=== PATIENT | male | born 1945 | race Caucasian/White ===

== ENCOUNTER 2016-09-08 14:36 | Observation (INO) | payer OTHER, MEDICARE ==
[~2016-09-08] VITALS: Ht 172.7 cm; Wt 89.0 kg
[2016-09-08] VITALS (10 sets, daily range): BP systolic 114–166; BP diastolic 63–82; PULSE 54–88; RESP 16–20; TEMP 98.1–98.5; O2SAT 94–96
[~2016-09-08 14:36] MED LIST: AMLO5TAB22 PO; BIOTSPR PO; CALTTAB2 PO; CYCL-36 PO; DILT120C49 PO; DOXE25 PO; ESZO1TAB2 PO; HYDR12.56 PO; HYDR2TAB PO; LANTUSP SQ; LEVO50TA4 PO; MAOX420T PO; MELO7.5 PO; NOVOINJ SQ; OMEP20TA PO; PREV1.1G; TERB1%T TOP; ULTR50TA PO; VITA500S3 PO
--- NOTE | 2016-09-08 14:59 | PD ---
HPI Chief Complaint: chest pain Time Seen by Provider: 14:48 Travel History International Travel<30 days: No Contact w/Intl Traveler<30days: No Traveled to known affect area: No History of Present Illness HPI This is a 71-year-old male who was sent here by the [place] via EMS for evaluation of chest pain. The patient reports that 1 developed left-sided chest pain which lasted for 3-4 days and then resolved. His current pain started 4 days ago. He reports that he was watching TV when he developed left-sided chest pain which has been constant. The pain is worse with inspiration. The pain is a dull aching pain in the left side of his chest with no radiating pain. He was seen at the [place] and sent here for further evaluation. The patient denies any nausea, vomiting, diaphoresis, acute shortness of breath, abdominal pain, recent travel/surgery. He reports that he has a history of coronary artery disease, he had a stent placed several years ago in [place]. According to his records he had a nuclear stress test September 26, 2015 through the [place] which was reportedly normal. He has no other complaints. [facility] Past Medical History Arthritis: Yes (RA) Anxiety: Yes (30% SERVICE CONNECTED FOLLOWED BY MENTAL HEALTH IN [place]) Cardiac Catheterization: Yes Cerebrovascular Accident: Yes (TIA) Diabetes: Yes Dialysis: Yes (TYPE II) Endocrine: Yes (LOW TESTOSTERONE LEVEL) Hepatitis: Yes (HEP C) Kidney Stones: Yes (URIC ACID STONES) Musculoskeletal: Yes (CHRONIC BACK PAIN ) Respiratory: Yes ([facility]STOS EXPOSURE - [employer]) Renal Failure: Yes (ACUTE RENAL FAILURE 08/07 - 09/21/06) Thyroid Disease: Yes (STARTED AFTER BEING ON INTERFERON) Past Surgical History Abdominal Surgery: Yes (EXP LAP AND RE-EXP LAP DONE DURING 08/07 TO 09/21 ADMIT AT [facility], [place]) Cholecystectomy: Yes (WITH SEPSIS 08/07 TO 09/21) Social History Alcohol Use: No Tobacco Use: No Substance Use: No Allergies-Medications (Allergen,Severity, Reaction): Coded Allergies: Albumin Human (Verified Allergy, Severe, 09/08/16) Aldactone (Verified Allergy, Unknown, 09/08/16) Baclofen (Verified Allergy, Unknown, 09/08/16) Fluoxetine (Verified Allergy, Unknown, 09/08/16) Lisinopril (Verified Allergy, Unknown, 09/08/16) Prozac (Verified Allergy, Unknown, 09/08/16) Uncoded Allergies: HYPAQUE MEGLUMINE (Allergy, Unknown, 10/12/13) VARDENAFIL (Allergy, Unknown, 10/12/13) Reported Meds & Prescriptions Reported Meds & Active Scripts Active Reported Ultram (Tramadol HCl) 50 Mg Tab 50 Mg PO TID PRN Lamisil At (Terbinafine HCl) 1 % Cr 1 Applic TOP BID TO AFFECTED AREA ON SKIN FOR FUNGAL INFECTION Prevident Fluoride (Sodium Fluoride (Dental)) 1.1 % Gel 1 Applic BID APPLY SMALL AMT TO TEETH Mobic 7.5 Mg Tab (Meloxicam) 7.5 Mg Tab 7.5 Mg PO DAILY Maox (Magnesium Oxide) 420 Mg Tab 420 Mg PO BID Hydrochlorothiazide 12.5 Mg Tab 12.5 Mg PO DAILY Eszopiclone 1 Mg Tab 1 Mg PO HS Sinequan 25 Mg Cap (Doxepin Hcl) 25 Mg Cap 25 Mg PO HS MAY TAKE UP TO 3 CAPS TOGETHER WITH ESZOPICLONE FOR SLEEP Flexeril (Cyclobenzaprine HCl) 10 Mg Tab 10 Mg PO BID PRN Vitamin B-12 (Cyanocobalamin) 500 Mcg Tab 500 Mcg PO DAILY Caltrate 600/Vitamin D 400 (Calcium/Vitamin D) 1 Tab Tab 1 Tab PO DAILY Biotene Moisturizing Mout (Artificial Saliva) Mouth Spr 1 [place] PO DIRECTED SWIRL FOR 10 SECONDS THEN SPIT OUT Amlodipine Besylate 5 Mg Tab 5 Mg PO DAILY Hydromorphone Hcl (Hydromorphone HCl) 8 Mg Tab 8 Mg PO Q6H PRN Levothyroxine 50 mcg (Levothyroxine Sodium) 50 Mcg Tab 50 Mcg PO DAILY TAKE 30 MINUTES BEFORE BREAKFAST, SEPERATE FROM CALCIUM AND MAGNESIUM PRODUCTS BY 4HRS Omeprazole 20 Mg Tab 20 Mg PO BID Novolog Penfill (Insulin Aspart) Inj 6 Units SQ TIDAC Lantus (Insulin Glargine) 100 Units/Ml Inj 24 Units SQ DAILY Diltiazem Cd (Diltiazem HCl) 120 Mg Cap 120 Mg PO DAILY Review of Systems Except as stated in HPI: all other systems reviewed are Neg Physical Exam Narrative GENERAL: Well-developed well-nourished male in no acute distress SKIN: Warm and dry. HEAD: Atraumatic. Normocephalic. EYES: Pupils equal and round. No scleral icterus. No injection or drainage. ENT: No nasal bleeding or discharge. Mucous membranes pink and moist. NECK: Trachea midline. No JVD. CARDIOVASCULAR: Regular rate and rhythm. No murmur appreciated. RESPIRATORY: No accessory muscle use. Clear to auscultation. Breath sounds equal bilaterally. GASTROINTESTINAL: Abdomen soft, non-tender, nondistended. Hepatic and splenic margins not palpable. MUSCULOSKELETAL: No obvious deformities. No clubbing. No cyanosis. No edema. NEUROLOGICAL: Awake and alert. No obvious cranial nerve deficits. Motor grossly within normal limits. Normal speech. PSYCHIATRIC: Appropriate mood and affect; insight and judgment normal. Data Data Last Documented VS Vital Signs Date Time Temp Pulse Resp B/P Pulse Ox O2 Delivery O2 Flow Rate FiO2 09/08/16 15:19 88 16 129/65 94 Room Air 09/08/16 14:55 98.1 Orders Electrocardiogram (09/08/16 14:51) Basic Metabolic Panel (Bmp) (09/08/16 14:51) Ckmb (Isoenzyme) Profile (09/08/16 14:51) Complete Blood Count With Diff (09/08/16 14:51) D-Dimer (09/08/16 14:51) Magnesium (Mg) (09/08/16 14:51) Prothrombin Time / Inr (Pt) (09/08/16 14:51) Act Partial Throm Time (Ptt) (09/08/16 14:51) Troponin I (09/08/16 14:51) Chest, Single Ap (09/08/16 14:51) Ecg Monitoring (09/08/16 14:51) Bilateral Bp Monitoring (09/08/16 14:51) Iv Access Insert/Monitor (09/08/16 14:51) Oximetry (09/08/16 14:51) Oxygen Administration (09/08/16 14:51) Sodium Chloride 0.9% Flush (Ns Flush) (09/08/16 15:00) Nitroglycerin Sl (Nitrostat Sl) (09/08/16 15:00) CKMB (09/08/16 15:15) CKMB% (09/08/16 15:15) Ct Pulmonary Angiogram (09/08/16 16:08) Potassium Chloride (Kcl) (7/25/17 16:30) Iohexol 350 Inj (Omnipaque 350 Inj) (09/08/16 18:28) Labs Laboratory Tests Test 09/08/16 15:15 White Blood Count 10.2 TH/MM3 Red Blood Count 4.01 MIL/MM3 Hemoglobin 13.3 GM/DL Hematocrit 37.9 % Mean Corpuscular Volume 94.6 FL Mean Corpuscular Hemoglobin 33.1 PG Mean Corpuscular Hemoglobin 35.0 % Concent Red Cell Distribution Width 13.6 % Platelet Count 181 TH/MM3 Mean Platelet Volume 9.1 FL Neutrophils (%) (Auto) 65.1 % Lymphocytes (%) (Auto) 23.4 % Monocytes (%) (Auto) 6.4 % Eosinophils (%) (Auto) 4.1 % Basophils (%) (Auto) 1.0 % Neutrophils # (Auto) 6.6 TH/MM3 Lymphocytes # (Auto) 2.4 TH/MM3 Monocytes # (Auto) 0.7 TH/MM3 Eosinophils # (Auto) 0.4 TH/MM3 Basophils # (Auto) 0.1 TH/MM3 CBC Comment DIFF FINAL Differential Comment Prothrombin Time 10.4 SEC Prothromb Time International 0.9 RATIO Ratio Activated Partial 25.2 SEC Thromboplast Time D-Dimer Quantitative (PE/DVT) 0.72 MG/L FEU Sodium Level 138 MEQ/L Potassium Level 3.4 MEQ/L Chloride Level 104 MEQ/L Carbon Dioxide Level 25.1 MEQ/L Anion Gap 9 MEQ/L Blood Urea Nitrogen 20 MG/DL Creatinine 1.44 MG/DL Estimat Glomerular Filtration 48 ML/MIN Rate Random Glucose 239 MG/DL Calcium Level 9.3 MG/DL Magnesium Level 2.2 MG/DL Total Creatine Kinase 140 U/L Creatine Kinase MB 2.1 NG/ML Troponin I LESS THAN 0.02 NG/ML [facility] Medical Decision Making Medical Screen Exam Complete: Yes Emergency Medical Condition: Yes Medical Record Reviewed: Yes Interpretation(s) EKG sinus rhythm Differential Diagnosis Pleurisy, acute coronary syndrome, aortic dissection, pulmonary embolism, costochondritis, pericarditis, myocarditis, pneumothorax Narrative Course 71-year-old male with history of coronary disease presents with 4 days of left- sided chest pain that is somewhat pleuritic in nature. He had a similar pain one month ago which resolved after 3-4 days. He was given 162 mg aspirin via EMS. The patient will be placed on ECG monitoring pulse oximetry. A 12-lead EKG will be obtained. Plan is for basic lab work, chest x-ray. Chest x-ray reveals a wedge-shaped parenchymal opacity involving the lingula. A CT of the chest was recommended by the radiologist. The d-dimer is elevated at 0.72. Therefore CT pulmonary angiogram has been ordered. Potassium 3.4. Potassium chloride has been administered. Troponin/CK are negative. CT pulmonary angiogram was negative for pulmonary embolus. There is some parenchymal scarring suggestive of asbestos exposure. The patient is aware of the scarring and does report that it is secondary to previous asbestos exposure. At this point in time the plan would be to admit the patient and of the chest pain center for serial cardiac enzymes and rule out purposes. He is agreeable. Discussed with my attending who is in agreement with the plan of care. Diagnosis Primary Impression: Chest pain Qualified Code: R07.9 - Chest pain, unspecified type Admitting Information Admitting Physician Requests: Stu Valdez Sep 08, 2016 14:59
[2016-09-08] MEDS ORDERED: NITROGLYCERIN 0.4 MG SL 25 TABS/BTL SL ONE (15:00)
[2016-09-08] MEDS ORDERED: SODIUM CHLORIDE 0.9% FLUSH 10 ML FLUSH IVF PRN (15:00)
--- NOTE | 2016-09-08 15:34 | RADRPT ---
EXAM DATE/TIME: 09/08/2016 15:01 [facility] COMPARISON: No previous studies available for comparison. INDICATIONS : Left upper chest pain. MEDICAL HISTORY : Asbestos SURGICAL HISTORY : Coronary artery stent. ENCOUNTER: Initial ACUITY: 1 day PAIN SCORE: 7/10 LOCATION: Left chest FINDINGS: A focal wedge-shaped parenchymal opacity is seen within the lingula. Calcified plaques are seen scatt ered bilaterally within the lower hemithoraces. Heart is normal in size. No effusions. Mild sclerotic curvature of the spine. CONCLUSION: 1. Wedge shaped parenchymal opacity involving the lingula. Although this could relate to a developing infiltrate or even atelectasis I cannot exclude a malignancy or pulmonary infarct. CT the chest woul d be beneficial to further evaluate. 2. Calcified pleural plaques bilaterally. Damon Molina Jr., MD on September 08, 2016 at 15:30 Board Certified Radiologist. This report was verified electronically.
[2016-09-08 15:37] LABS: AUTOMATED NEUTROPHIL # 6.6 TH/MM3 (1.8-7.7); BASOPHIL # 0.1 TH/MM3 (0-0.2); EOSINOPHIL # 0.4 TH/MM3 (0-0.4); EOSINOPHIL % 4.1 % (0.0-4.0); HEMATOCRIT 37.9 % (39.0-51.0); HEMO FLAGS DIFF FINAL; LYMPH % 23.4 % (9.0-44.0); LYMPHOCYTE # 2.4 TH/MM3 (1.0-4.8); MEAN CELL VOLUME 94.6 FL (80.0-100.0); MEAN CORPUSCULAR HEMOGLOBIN 33.1 PG (27.0-34.0); MONO % 6.4 % (0.0-8.0); NEUT % 65.1 % (16.0-70.0); PLATELET COUNT 181 TH/MM3 (150-450); RED BLOOD COUNT 4.01 MIL/MM3 (4.50-5.90); RED CELL DISTRIBUTION WIDTH 13.6 % (11.6-17.2); WHITE BLOOD COUNT 10.2 TH/MM3 (4.0-11.0)
[2016-09-08 16:00] LABS: APTT (PATIENT) 25.2 SEC (24.3-30.1); INTERNATIONAL NORMALIZED RATIO 0.9 RATIO; PROTHROMBIN TIME - PATIENT 10.4 SEC (9.8-11.6)
[2016-09-08 16:02] LABS: ANION GAP 9 MEQ/L (5-15); BICARBONATE 25.1 MEQ/L (21.0-32.0); BLOOD UREA NITROGEN 20 MG/DL (7-18); CHLORIDE 104 MEQ/L (98-107); GLOMERULAR FILTRATION RATE 48 ML/MIN (>89); MAGNESIUM 2.2 MG/DL (1.5-2.5); POTASSIUM 3.4 MEQ/L (3.5-5.1); SODIUM (NA) 138 MEQ/L (136-145)
[2016-09-08 16:05] LABS: CREATINE KINASE 140 U/L (39-308)
[2016-09-08 16:18] LABS: CKMB 2.1 NG/ML (0.5-3.6)
[2016-09-08] MEDS ORDERED: POTASSIUM CHLORIDE 20 MEQ CONTROLLED RELEASE TAB PO ONE (16:30)
--- NOTE | 2016-09-08 16:57 | EKG ---
Date Performed: 09/08/2016 Time Performed: 15:02:47 PTAGE: 71 years EKG: Sinus rhythm NONSPECIFIC T-WAVE ABNORMALITY BORDERLINE ECG PREVIOUS TRACING : 03/31/2012 13.24 Compared to the previous tracing rate slower DOCTOR: Deyvi Tyler Interpretating Date/Time 09/08/2016 16:56:13
[2016-09-08] MEDS ORDERED: IOHEXOL 350 MG/ML 10 ML VIAL (for RAD DIAG) IV ONE (18:28)
--- NOTE | 2016-09-08 18:40 | RADRPT ---
EXAM DATE/TIME: 09/08/2016 18:26 [facility] COMPARISON: No previous studies available for comparison. INDICATIONS : Chest pain. IV CONTRAST: 75 cc Omnipaque 350 (iohexol) IV RADIATION DOSE: 23.44 CTDIvol (mGy) MEDICAL HISTORY : Cardiovascular disease. Hepatitis C. Renal failure. SURGICAL HISTORY : Cholecystectomy. ENCOUNTER: Initial ACUITY: 1 day PAIN SCALE: 7/10 LOCATION: Bilateral chest TECHNIQUE: Volumetric scanning of the chest was performed using a pulmonary embolism protocol MIP images were re constructed. Using automated exposure control and adjustment of the mA and/or kV according to patien t size, radiation dose was kept as low as reasonably achievable to obtain optimal diagnostic quality images. DICOM format image data is available electronically for review and comparison. Follow-up recommendations for incidentally detected pulmonary nodules are based at a minimum on nodul e size and patient risk factors according to Fleischner Society Guidelines. FINDINGS: PULMONARY ARTERIES: No filling defects are seen in the pulmonary arteries through the segmental level. LUNGS: There is no consolidation or pneumothorax . Scattered groundglass densities in the lower lobes and an terior right upper lobe. Parenchymal scarring in the lower lobes and right middle lobe. No concernin g pulmonary nodule is visualized. PLEURAE: There are nodular areas of pleural thickening containing calcifications bilaterally.. MEDIASTINUM: There is good visualization of the great vessels of the middle mediastinum. No evidence of mediastin al or hilar adenopathy/mass. Cardiomegaly and coronary artery calcifications. MUSCULOSKELETAL: Within normal limits for patient age. MISCELLANEOUS: The visualized upper abdominal organs demonstrate no acute abnormality. CONCLUSION: 1. No evidence for pulmonary embolism. 2. Scattered groundglass densities and pleural-parenchymal scarring in the lung bases and right middl e lobe. This could be related to interstitial disease asbestos exposure. 3. Calcified pleural plaques. This is consistent with asbestosis exposure. Glenn Figueredo MD on September 08, 2016 at 18:36 Board Certified Radiologist. This report was verified electronically.
[2016-09-08] MEDS ORDERED: ACETAMINOPHEN 500 MG CPLT PO PRN (19:00)
[2016-09-08] MEDS ORDERED: SODIUM CHLORIDE 0.9% FLUSH 10 ML FLUSH IV FLUSH PRN (19:00)
[2016-09-08] MEDS ORDERED: LEVO50TA4 PO (20:32)
[2016-09-08] MEDS ORDERED: CALCCHW5 PO (20:32)
[2016-09-08] MEDS ORDERED: VENL37.5 PO (20:32)
[2016-09-08] MEDS ORDERED: LIDO1CRE18 TOPICAL (20:32)
[2016-09-08] MEDS ORDERED: METF500T PO (20:32)
[2016-09-08] MEDS ORDERED: FOLI1TAB6 PO (20:32)
[2016-09-08] MEDS ORDERED: CARD180C5 PO (20:32)
[2016-09-08] MEDS ORDERED: PLAV75TA29 PO (20:32)
[2016-09-08] MEDS ORDERED: ROBA500T PO (20:32)
[2016-09-08] MEDS ORDERED: MAGN400T2 PO (20:32)
[2016-09-08] MEDS ORDERED: NOVOLOGSS SQ (20:32)
[2016-09-08] MEDS ORDERED: ATOR1TAB18 PO (20:32)
[2016-09-08] MEDS ORDERED: ACET-822 PO (20:32)
[2016-09-08] MEDS ORDERED: LOSA100T PO (20:32)
[2016-09-08] MEDS ORDERED: OMEP20TA PO (20:32)
[2016-09-08] MEDS ORDERED: AMLO10TA2 PO (20:32)
[2016-09-08] MEDS ORDERED: DENTCRE3 (20:32)
[2016-09-08] MEDS ORDERED: CLOTR1%T TOPICAL (20:32)
[2016-09-08] MEDS ORDERED: LANTUS2P SQ (20:32)
[2016-09-08] MEDS ORDERED: VITA100018 PO (20:32)
[2016-09-08] MEDS ORDERED: TAMS0.4C4 PO (20:32)
[2016-09-08] MEDS ORDERED: CAPS0.022 TOPICAL (20:32)
[2016-09-08 20:49] LABS: CREATINE KINASE 133 U/L (39-308)
[2016-09-08] MEDS: SODIUM CHLORIDE 0.9% FLUSH 10 ML FLUSH IV FLUSH SCH (21:00)
[2016-09-08 21:01] LABS: CKMB 1.8 NG/ML (0.5-3.6)
[2016-09-08 23:56] LABS: CREATINE KINASE 104 U/L (39-308)
[2016-09-09 00:10] LABS: CKMB 1.5 NG/ML (0.5-3.6)
[2016-09-09 04:57] VITALS: BP 121/70; PULSE 57; RESP 18; TEMP 97.8; O2SAT 97
[2016-09-09 05:57] VITALS: PULSE 52
[2016-09-09 07:43] VITALS: BP 132/76; PULSE 55; RESP 18; TEMP 97.6; O2SAT 96
[2016-09-09 08:10] VITALS: PULSE 51
[2016-09-09] MEDS ORDERED: RESP: ALBUTEROL 2.5 MG/IPRATROPIUM 0.5 MG NEB (PRN) INH (08:30)
[2016-09-09] MEDS: SODIUM CHLORIDE 0.9% FLUSH 10 ML FLUSH IV FLUSH SCH (08:36)
[2016-09-09] MEDS ORDERED: DEXTROSE 50% IN WATER 50 ML VIAL(D50) IV PRN (08:45)
[2016-09-09] MEDS ORDERED: GLUCAGON 1 MG/ML VIAL IM/SQ PRN (08:45)
[2016-09-09] MEDS ORDERED: CLOPIDOGREL 75 MG TAB PO SCH (09:00)
[2016-09-09] MEDS ORDERED: FOLIC ACID 1 MG TAB PO SCH (09:00)
[2016-09-09] MEDS ORDERED: VENLAFAXINE HCL XR 37.5 MG CAP PO SCH (10:00)
[2016-09-09] MEDS ORDERED: LOSARTAN 50 MG TAB PO SCH (10:00)
[2016-09-09] MEDS ORDERED: DILTIAZEM-CD 180 MG CAP ER PO SCH (10:00)
[2016-09-09] MEDS ORDERED: METHOCARBAMOL 500 MG TAB PO PRN (10:00)
[2016-09-09] MEDS ORDERED: LEVOTHYROXINE SODIUM 50 MCG TAB PO SCH (10:00)
[2016-09-09] MEDS ORDERED: PANTOPRAZOLE SOD 20 MG DELAYED RELEASE TAB PO SCH (10:00)
--- NOTE | 2016-09-09 10:11 | HHI.HP ---
HPI Primary Care Physician [facility] Chief Complaint Chest pain History of Present Illness This is a 71-year-old male that presents to the ED from the [place] via ambulance to evaluate chest discomfort. Patient states that he has been having a constant left upper chest discomfort for 5 days. Worsened with certain movements. He has had a little worsening chronic shortness of breath. No nausea or diaphoresis. He has history of CAD and had a stent in 2004. He had a nonischemic nuclear stress test September 2015 through the [place]. Denies recent illness. Denies fevers or chills. Voices compliance with all his medications. Review of Systems General: Patient denies fevers, chills recent, and recent travel HEENT: Patient denies headache, sore throat, difficulty swallowing. Cardiovascular: Has the chest discomfort as mentioned above. Denies sensation of heart beating rapidly or irregularly. No syncope. Denies diaphoresis. Respiratory: Low but worsening of his chronic shortness of breath. Denies inspirational chest discomfort. Denies coughing wheezing or hemoptysis. GI: Patient denies nausea, vomiting, diarrhea, abdominal pain, bloody stools. Musculoskeletal: Patient denies joint pain or edema. Denies calf pain or edema. Neurovascular: Patient denies numbness, tingling, weakness in extremities. Denies headache. Endocrine: Denies polyuria and polydipsia. Hematologic: Denies easy bruising. Skin: Denies rash or itching. Past Family Social History Allergies: Coded Allergies: Albumin Human (Verified Allergy, Severe, 09/08/16) Aldactone (Verified Allergy, Unknown, 09/08/16) Baclofen (Verified Allergy, Unknown, 09/08/16) Fluoxetine (Verified Allergy, Unknown, 09/08/16) Lisinopril (Verified Allergy, Unknown, 09/08/16) Prozac (Verified Allergy, Unknown, 09/08/16) Uncoded Allergies: HYPAQUE MEGLUMINE (Allergy, Unknown, 10/12/13) VARDENAFIL (Allergy, Unknown, 10/12/13) Past Medical History CAD with stenting in 2004. Hypertension, hyperlipidemia, diabetes, renal insufficiency, hyperthyroidism, asbestosis. Past Surgical History Cardiac catheterization with stenting. Multiple back surgeries. Reported Medications Reported Meds & Active Scripts Active Reported Tylenol Extra Strength (Acetaminophen) 500 Mg Tablet 500 Mg PO Q4HR PRN Omeprazole 20 Mg Tab 20 Mg PO BID Cardizem CD 24 HR (Diltiazem CD 24 HR) 180 Mg Caper 180 Mg PO DAILY Clotrimazole Topical (Clotrimazole) 1% Soln 1 Applic TOPICAL BID Losartan (Losartan Potassium) 100 Mg Tab 50 Mg PO DAILY Calcium 600 with Vitamin 600-400 mg-Unit (Calcium Carbonate-Vitamin D) 1 Chw Chw 1 Tab PO DAILY Robaxin (Methocarbamol) 500 Mg Tab 750 Mg PO HS PRN Lidocaine Topical (Lidocaine) 4 % Cream 1 Applic TOPICAL BID Apply 30 minutes prior to Capsacin Crm for joint pain Capsaicin Topical (Capsaicin) 0.025% Cream 1 Applic TOPICAL BID Vitamin D3 (Cholecalciferol) 1,000 Unit Tab 1,000 Units PO DAILY Levothyroxine (Levothyroxine Sodium) 50 Mcg Tab 50 Mcg PO DAILY Atorvastatin (Atorvastatin Calcium) 80 Mg Tab 40 Mg PO HS Magnesium Oxide 400 Mg Tab 400 Mg PO EVERY OTHER DAY Effexor (Venlafaxine HCl) 37.5 Mg Tab 37.5 Mg PO DAILY Folic Acid 1 Mg Tablet 1 Mg PO DAILY Tamsulosin (Tamsulosin HCl) 0.4 Mg Cap 0.4 Mg PO HS Denta 5000 Plus (Sodium Fluoride (Dental)) 1.1 % Cre 1 Applic BID Apply small amount to teeth twice a day Metformin (Metformin HCl) 500 Mg Tab 500 Mg PO BID With meals Plavix (Clopidogrel Bisulfate) 75 Mg Tab 75 Mg PO DAILY Novolog Inj (Insulin Aspart) 100 Unit/Ml Inj 10 Units SQ TIDAC Lantus Inj (Insulin Glargine) 100 Unit/Ml Inj 30 Units SQ HS Amlodipine (Amlodipine Besylate) 10 Mg Tab 10 Mg PO DAILY Active Ordered Medications Current Medications Medications (Trade) Dose Ordered Sig/Anastacia Route Start Time Stop Time Status Last Admin (NS Flush) 2 ml UNSCH PRN IVF 09/08/16 15:00 (NS Flush) 2 ml UNSCH PRN IV FLUSH 09/08/16 19:00 (NS Flush) 2 ml BID IV FLUSH 09/08/16 21:00 09/09/16 08:36 (Tylenol) 500 mg Q4H PRN PO 09/08/16 19:00 (Norvasc) 10 mg DAILY PO 09/09/16 09:00 (Lipitor) 40 mg HS PO 09/09/16 21:00 (Plavix) 75 mg DAILY PO 09/09/16 09:00 (Cardizem Cd) 180 mg DAILY PO 09/09/16 10:00 (Folate) 1 mg DAILY PO 09/09/16 09:00 (Synthroid) 50 mcg DAILY@06 PO 09/09/16 10:00 (Cozaar) 50 mg DAILY PO 09/09/16 10:00 (Robaxin) 750 mg HS PRN PO 09/09/16 10:00 (Flomax) 0.4 mg HS PO 09/09/16 21:00 (Protonix) 20 mg BID PO 09/09/16 10:00 (Effexor Xr) 37.5 mg DAILY PO 09/09/16 10:00 (D50w (Vial) Inj) 25 ml UNSCH PRN IV 09/09/16 08:45 (Glucagon Inj) 1 mg UNSCH PRN IM/SQ 09/09/16 08:45 Family History There is family history of CAD. Social History Patient has an occasional cigar that he states he chews on. Denies alcohol or illicit drugs. He is . Physical Exam Vital Signs Vital Signs Date Time Temp Pulse Resp B/P Pulse Ox O2 Delivery O2 Flow Rate FiO2 09/09/16 07:43 97.6 55 18 132/76 96 09/09/16 05:57 52 09/09/16 04:57 97.8 57 18 121/70 97 09/09/16 02:48 21 09/08/16 22:03 98.5 54 18 145/73 96 09/08/16 21:00 54 20 134/69 96 Room Air 09/08/16 20:30 64 19 164/76 95 Room Air 09/08/16 20:00 56 20 133/69 96 Room Air 09/08/16 19:40 57 20 141/80 96 Room Air 09/08/16 15:19 88 16 129/65 94 Room Air 09/08/16 15:17 129/65 09/08/16 15:16 114/63 09/08/16 15:00 94 Room Air 09/08/16 15:00 94 Room Air 09/08/16 14:55 98.1 166/82 96 Physical Exam GENERAL: This is a well-nourished, well-developed patient, in no apparent distress. Patient speaks in clear complete sentences. Patient is pleasant. HEENT: Head is atraumatic and normocephalic. Neck is supple without lymphadenopathy and trachea is midline. No JVD or carotid bruits. CARDIOVASCULAR: Grade 2 systolic murmur right sternal border. Regular rate and rhythm without gallops or rubs. RESPIRATORY: Clear to auscultation. Breath sounds equal bilaterally. No wheezes , rales, or rhonchi. Left upper chest wall is tender worsening the discomfort he has been having. No use of accessory muscles. GASTROINTESTINAL: Abdomen is nontender, nondistended. Abdomen soft. No obvious pulsatile mass or bruit. No CVA tenderness. Strong femoral pulses bilaterally. Normal bowel sounds in all quadrants. MUSCULOSKELETAL: Patient is moving upper and lower extremities freely. No calf tenderness or edema, no Homans sign. Strong pulses in upper and lower extremities. NEUROLOGICAL: Patient is alert and oriented. Cranial nerves 2-12 are grossly intact. No focal deficits and speech is clear. SKIN: No rash and turgor is normal. Laboratory Laboratory Tests Test 09/08/16 09/08/16 09/08/16 15:15 19:45 23:03 White Blood Count 10.2 Red Blood Count 4.01 Hemoglobin 13.3 Hematocrit 37.9 Mean Corpuscular Volume 94.6 Mean Corpuscular Hemoglobin 33.1 Mean Corpuscular Hemoglobin 35.0 Concent Red Cell Distribution Width 13.6 Platelet Count 181 Mean Platelet Volume 9.1 Neutrophils (%) (Auto) 65.1 Lymphocytes (%) (Auto) 23.4 Monocytes (%) (Auto) 6.4 Eosinophils (%) (Auto) 4.1 Basophils (%) (Auto) 1.0 Neutrophils # (Auto) 6.6 Lymphocytes # (Auto) 2.4 Monocytes # (Auto) 0.7 Eosinophils # (Auto) 0.4 Basophils # (Auto) 0.1 CBC Comment DIFF FINAL Differential Comment Prothrombin Time 10.4 Prothromb Time International 0.9 Ratio Activated Partial 25.2 Thromboplast Time D-Dimer Quantitative (PE/DVT) 0.72 Sodium Level 138 Potassium Level 3.4 Chloride Level 104 Carbon Dioxide Level 25.1 Anion Gap 9 Blood Urea Nitrogen 20 Creatinine 1.44 Estimat Glomerular Filtration 48 Rate Random Glucose 239 Calcium Level 9.3 Magnesium Level 2.2 Total Creatine Kinase 140 133 104 Creatine Kinase MB 2.1 1.8 1.5 Troponin I LESS THAN 0.02 LESS THAN 0.02 LESS THAN 0.02 Result Diagram: 09/08/16 1515 09/08/16 1515 Imaging Last [address] Angiography 09/08/16 1608 Signed Impressions: Service Date/Time: Thursday, September 08, 2016 18:26 - CONCLUSION: 1. No evidence for pulmonary embolism. 2. Scattered groundglass densities and pleural-parenchymal scarring in the lung bases and right middle lobe. This could be related to interstitial disease asbestos exposure. 3. Calcified pleural plaques. This is consistent with asbestosis exposure. Glenn Figueredo MD Chest X-Ray 09/08/16 1451 Signed Impressions: Service Date/Time: Thursday, September 08, 2016 15:01 - CONCLUSION: 1. Wedge shaped parenchymal opacity involving the lingula. Although this could relate to a developing infiltrate or even atelectasis I cannot exclude a malignancy or pulmonary infarct. CT the chest would be beneficial to further evaluate. 2. Calcified pleural plaques bilaterally. Damon Molina Jr., MD Course EKGs have been sinus rhythm to sinus bradycardia without significant ST segment depressions or elevations. Assessment and Plan Assessment and Plan * Chest pain: His discomfort is atypical but has history of CAD. He will be seen by Dr. Mccray of cardiology in the chest pain center and will be discharged home if his stress test is nonischemic. * Hypertension: Continue current medication. * Hyperlipidemia: Continue current medication. * Diabetes: He'll be on sliding scale insulin coverage. Hold metformin for 48 hours otherwise resume other medications. He should follow diabetic diet. * Hypothyroidism: Continue current medication. * Asbestosis: Tinea current therapy. * CAD Will reassess with the stress test. Patient is stable at this time. He is agreeable to this plan. Jaylan Rubalcava Sep 09, 2016 10:11
--- NOTE | 2016-09-09 10:12 | HHI.DCPOC ---
Discharge Care Plan Diagnosis: (1) Chest pain (2) CAD (coronary artery disease) (3) H/O heart artery stent (4) Hypertension (5) Hyperlipidemia (6) DM (diabetes mellitus) (7) Renal insufficiency (8) Hypothyroidism (9) Asbestosis Goals to Promote Your Health DON'T TAKE METFORMIN FOR TWO DAYS. * To prevent worsening of your condition and complications * To maintain your health at the optimal level Directions to Meet Your Goals Take your medications as prescribed Follow your dietary instruction Follow activity as directed Keep your appointments as scheduled Take your immunizations and boosters as scheduled If your symptoms worsen call your PCP, if no PCP go to Urgent Care Center or Emergency Room Smoking is Dangerous to Your Health. Avoid second hand smoke Call the 24-hour hour crisis hotline for domestic abuse at Jaylan Rubalcava Sep 09, 2016 10:12
[2016-09-09] MEDS ORDERED: INSULIN ASPART SUPPLEMENTAL SCALE SQ SCH (11:00)
[2016-09-09] MEDS ORDERED: MAGNESIUM OXIDE 400 MG TAB PO SCH (11:00)
[2016-09-09] MEDS ORDERED: METF500T PO (11:48)
[2016-09-09] MEDS ORDERED: REGADENOSON INJ 0.4 MG/5 ML SYR ONE (11:52)
[2016-09-09 13:25] VITALS: PULSE 56
--- NOTE | 2016-09-09 13:35 | RADRPT ---
EXAM DATE/TIME: 09/09/2016 11:12 [facility] COMPARISON: No previous studies available for comparison. INDICATIONS : Left sided chest pain for one day. Angina. DOSE: 26.1 mCi Tc99m Myoview at stress. 8.1 mCi Tc99m Myoview at rest. 0.4 mg Lexiscan STRESS SYMPTOMS: Shortness of breath with chest pain. EJECTION FRACTION: 59% MEDICAL HISTORY : Diabetes mellitus type 2. SURGICAL HISTORY : Cholecystectomy. Back surgery. ENCOUNTER: Initial ACUITY: 1 day PAIN SCALE: 7/10 LOCATION: Left chest TECHNIQUE: The patient underwent pharmacologic stress with infusion of prescribed dose. Continuous ECG tracing was monitored during stress. Gated SPECT imaging was performed after stress and conventional SPECT i maging was performed at rest. The examination was performed on a SPECT/CT scanner, both attenuation and non-corrected datasets were reviewed. FINDINGS: DISTRIBUTION: The maximum perfused segment at stress is in the septal wall. PERFUSION STUDY: Is a small area of mildly diminished relative perfusion involving the inferolateral wall. No evidence of redistribution. GATED STUDY: There is intact wall motion and thickening without hypokinetic or dyskinetic segments. CONCLUSION: Small inferolateral perfusion abnormality without redistribution. RISK CATEGORY: Low (<1% Annual Mortality Rate) Oscar Hughes MD on September 09, 2016 at 13:31 Board Certified Radiologist. This report was verified electronically.
--- NOTE | 2016-09-09 16:51 | TR ---
Date Performed: 09/09/2016 Time Performed: 11:56:10 DOCTOR: Nayan Mccray DRUG LIST: CLINICAL HISTORY: ANGINA REASON FOR TEST: Angina REASON FOR ENDING: OBSERVATION: CONCLUSION: Lexiscan stress test was performed under standard four minute protocol. Radionuclid e was injected one minute prior to ending the test. No electrocardiographic abormalities were present to suggest ischemia. Nuclear imaging and interpretation are pending. COMMENTS:
--- NOTE | 2016-09-09 17:07 | EKG ---
Date Performed: 09/08/2016 Time Performed: 23:42:36 PTAGE: 71 years EKG: SINUS BRADYCARDIA NONSPECIFIC ST & T-WAVE ABNORMALITY BORDERLINE ECG PREVIOUS TRACING : 09/08/2016 19.45 Since previous tracing, no significant change noted DOCTOR: Nayan Mccray Interpretating Date/Time 09/09/2016 17:06:17
--- NOTE | 2016-09-09 17:08 | EKG ---
Date Performed: 09/08/2016 Time Performed: 19:45:37 PTAGE: 71 years EKG: SINUS BRADYCARDIA NONSPECIFIC T-WAVE ABNORMALITY BORDERLINE ECG Since PREVIOUS TRACING , no significant change noted DOCTOR: Nayan Mccray Interpretating Date/Time 09/09/2016 17:07:18
[2016-09-09] MEDS ORDERED: ATORVASTATIN 80 MG TAB PO SCH (21:00)
[2016-09-09] MEDS ORDERED: TAMSULOSIN HCL 0.4 MG CAP PO SCH (21:00)
== END 2016-09-09 14:42 | disposition home or self-care (01) ==
LOC: NEPE 14:36 → NEDA 18:53 → UNDOADMOB 18:53 → NEDH 18:53 → NEPHCDU 21:25
PROVIDERS: ADMIT Internal Medicine Interventional Cardiology; ATTEND Internal Medicine Interventional Cardiology
DX: R07.89 Other chest pain (principal); I25.10 Atherosclerotic heart disease of native coronary artery without angina pectoris; I10 Essential (primary) hypertension; E78.5 Hyperlipidemia, unspecified; E11.9 Type 2 diabetes mellitus without complications; F41.9 Anxiety disorder, unspecified; N28.9 Disorder of kidney and ureter, unspecified; R00.1 Bradycardia, unspecified; E03.9 Hypothyroidism, unspecified; J61 Pneumoconiosis due to asbestos and other mineral fibers; Z79.899 Other long term (current) drug therapy; Z95.5 Presence of coronary angioplasty implant and graft; Z79.84 Long term (current) use of oral hypoglycemic drugs
CPT/HCPCS: 71010; 71275; 78452; 80048; 82550; 82552; 82948; 83735; 84484; 85025; 85379; 85610; 85730; 93005; 93017; 99285; A9502; G0378; J2785; Q9967

== ENCOUNTER → 2016-09-16 | Outpatient (CLI) | payer MEDICARE ==
[~2016-09-16] MED LIST changes: +ACET-822 PO; +AMLO10TA2 PO; -AMLO5TAB22 PO; +ATOR1TAB18 PO; -BIOTSPR PO; +CALCCHW5 PO; -CALTTAB2 PO; +CAPS0.022 TOPICAL; +CARD180C5 PO; +CLOTR1%T TOPICAL; -CYCL-36 PO; +DENTCRE3; -DILT120C49 PO; -DOXE25 PO; -ESZO1TAB2 PO; +FOLI1TAB6 PO; -HYDR12.56 PO; -HYDR2TAB PO; +LANTUS2P SQ; -LANTUSP SQ; +LIDO1CRE18 TOPICAL; +LOSA100T PO; +MAGN400T2 PO; -MAOX420T PO; -MELO7.5 PO; +METF500T PO; -NOVOINJ SQ; +NOVOLOGSS SQ; +PLAV75TA29 PO; -PREV1.1G; +ROBA500T PO; +TAMS0.4C4 PO; -TERB1%T TOP; -ULTR50TA PO; +VENL37.5 PO; +VITA100018 PO; -VITA500S3 PO
--- NOTE | 2016-09-16 14:01 | RADRPT ---
EXAM DATE/TIME: 09/16/2016 00:00 [place] COMPARISON: No previous studies available for comparison. INDICATIONS : Claudication TECHNIQUE: Five-station segmental examination of the lower extremities was performed pre and post extercise. Pulsed-cuff waveform tracings and pressures were recorded. Ankle-brachial indices and toe-brachial indices were calculated. PRESSURES (mmHg): Pre Exercise: Brachial (arm): Right 138 Left 145 Ankle: Right 162 Left 178 MICHELL: Right 1.12 Left 1.23 TBI: Right 1.11 Left 0.93 Post Exercise: Brachial (arm): Left 145 Not applicable Ankle: Right 173 Left 182 PULSED CUFF WAVEFORMS: Demonstrate normal amplitude bilaterally. CONCLUSION: Unremarkable segmental evaluation of the lower extremities. Rom Juan MD on September 16, 2016 at 13:58 Board Certified Radiologist. This report was verified electronically.
== END ==
LOC: HCAV 11:00
PROVIDERS: ATTEND Internal Medicine Gastroenterology
DX: I70.219 Atherosclerosis of native arteries of extremities with intermittent claudication, unspecified extremity (principal)
CPT/HCPCS: 93924